=== PATIENT | male | born 1985 | race Caucasian/White ===

== ENCOUNTER 2024-07-17 12:26 | Inpatient (IN) | payer OTHER ==
[2024-07-17 13:59] VITALS: BMI 32.3
[2024-07-17] MEDS ORDERED: POLYETHYLENE GLYCOL (HEALTHYLAX) 3350 17 GM PACKET PO PRN (14:15)
[2024-07-17] MEDS ORDERED: ACETAMINOPHEN 325 MG TABLET (FP) PO PRN (14:15)
[2024-07-17] MEDS ORDERED: NALOXONE (NARCAN) HCL 4 MG/0.1 ML SPRAY NS PRN (14:15)
[2024-07-17] MEDS ORDERED: guaiFENesin 600 MG TABLET.ER (FP) PO PRN (14:15)
[2024-07-17] MEDS ORDERED: MAGNESIUM HYDROX 2400MG/30ML ORAL SUSPENSION 30 ML CUP PO PRN (14:15)
[2024-07-17] MEDS ORDERED: LOPERAMIDE HCL 2 MG CAPSULE PO PRN (14:15)
[2024-07-17] MEDS ORDERED: BENZONATATE 200 MG CAPSULE PO PRN (14:15)
[2024-07-17] MEDS ORDERED: BENZOCAINE/MENTHOL (CHLORASEPTIC ) LOZENGE MM PRN (14:15)
[2024-07-17] MEDS ORDERED: IBUPROFEN 400 MG TABLET (FP) PO PRN (14:15)
[2024-07-17] MEDS ORDERED: IBUPROFEN 600 MG TABLET (FP) PO PRN (14:15)
[2024-07-17] MEDS ORDERED: NICOTINE POLACRILEX 4 MG GUM BUC ONE (16:06)
[2024-07-17] MEDS: NICOTINE POLACRILEX 4 MG GUM BUC PRN (16:07)
[2024-07-17] MEDS ORDERED: TUBERCULIN PPD 5 TU/0.1ML VIAL ID ONE ×2 (17:32→18:29)
[2024-07-17] MEDS: THIAMINE 100 MG TABLET PO SCH (21:21)
[2024-07-17] MEDS: MELATONIN 5 MG TABLETS PO SCH (21:21)
[2024-07-17 23:37] LABS: PH,URINE 5.5 (5.0-8.0); URINE APPEARANCE TURBID; URINE BILIRUBIN NEGATIVE (NEGATIVE); URINE COLOR YELLOW; URINE GLUCOSE (UA) NEGATIVE (NEGATIVE); URINE KETONE TRACE (NEGATIVE); URINE LEUK ESTERASE NEGATIVE (NEGATIVE); URINE NITRITE NEGATIVE (NEGATIVE); URINE PROTEIN NEGATIVE (NEGATIVE)
[2024-07-18 09:53] LABS: CHLORIDE 107 mmol/L (98-107); POTASSIUM 4.5 mmol/L (3.5-5.1); SODIUM 139 mmol/L (136-145)
[2024-07-18 09:57] LABS: HEMATOCRIT 40.4 % (35.4-49); HEMOGLOBIN 12.9 GM/dL (11.7-16.9); MCH 28.4 pg (25.7-33.7); MCHC 31.8 g/dl (32.0-35.9); MEAN CELL VOLUME 89.2 fl (80-96); MEAN PLT VOLUME 9.5 fl (7.5-11.1); PLATELET COUNT 292 10^3/uL (134-434); RBC 4.53 M/mm3 (4.00-5.60); RDW 15.6 % (11.9-15.9); WHITE BLOOD COUNT 10.4 K/mm3 (4.0-10.0)
[2024-07-18] MEDS: CITALOPRAM HYDROBROMIDE 20 MG TABLET PO SCH (10:02)
[2024-07-18] MEDS: NICOTINE 21 MG/24 HOURS TOPICAL PATCH TD SCH (10:03)
[2024-07-18] MEDS: PRENATAL VITAMINS W/ FOLIC ACID TABLET (FP) PO SCH (10:03)
[2024-07-18] MEDS: hydrOXYzine PAMOATE 25 MG CAPSULE (FP) PO PRN (10:04)
[2024-07-18 10:18] LABS: ALBUMIN 3.4 g/dl (3.4-5.0); CALCIUM 8.5 mg/dL (8.5-10.1)
[2024-07-18 10:19] LABS: ANION GAP 6 mmol/L (4-13); BLOOD UREA NITROGEN 11.4 mg/dL (7-18); CO2 26 mmol/L (21-32); GLUCOSE,RANDOM 89 mg/dL (74-106)
[2024-07-18 10:22] LABS: CREATININE 1.1 mg/dL (0.55-1.3); SGOT/AST 18 U/L (15-37)
[2024-07-18 10:23] LABS: SGPT/ALT 31 U/L (13-61)
[2024-07-18 10:25] LABS: BILIRUBIN,TOTAL 0.8 mg/dL (0.2-1); TOT PROT 6.4 g/dl (6.4-8.2)
[2024-07-18 10:26] LABS: ALK PHOS 60 U/L (45-117)
[2024-07-18] MEDS: MAG HYDROX/AL HYDROX/SIMETH 30 ML UNIT-DOSE CUP PO PRN (16:34)
[2024-07-18 18:36] LABS: SYPHILIS W/ RPR CONF NON-REACTIVE (NONREACTIVE)
[2024-07-18 19:05] LABS: HCV DIAGNOSTIC IN-HOUSE W/RFLX NON-REACTIVE (NONREACTIVE)
[2024-07-18] MEDS: SUVOREXANT 10 MG TABLET PO PRN (21:27)
[2024-07-21] MEDS: SUVOREXANT 10 MG TABLET PO PRN (21:37)
[2024-07-23] MEDS: FAMOTIDINE 20 MG TABLET PO SCH (14:38)
[2024-07-23] MEDS: hydrOXYzine PAMOATE 25 MG CAPSULE (FP) PO PRN (18:56)
[2024-07-23] MEDS: SUVOREXANT 15 MG TABLET PO PRN (21:39)
[2024-07-23] MEDS: SIMETHICONE 80 MG TAB.CHEW (FP) PO PRN (21:41)
[2024-07-24] MEDS: NALTREXONE HCL 50 MG TABLET PO SCH (10:23)
[2024-07-24 12:05] LABS: MAGNESIUM 2.3 mg/dL (1.8-2.4)
[2024-07-24 12:23] LABS: INR 1.06 (0.83-1.09); PROTHROMBIN TIME (PATIENT) 11.7 SEC (9.7-13.0)
[2024-07-25] MEDS: LACTULOSE 20 GM/30 ML UDC (FOR ORAL USE ONLY) PO SCH (07:37)
[2024-07-25] MEDS: ATORVASTATIN CA 10 MG TABLET (FP) PO SCH (21:26)
[2024-07-28] MEDS: SUVOREXANT 15 MG TABLET PO PRN (21:10)
[2024-07-30] MEDS: ATORVASTATIN CA 20 MG TABLET (FP) PO SCH (21:59)
[2024-08-02] MEDS: SUVOREXANT 15 MG TABLET PO PRN (21:48)
[2024-08-05] MEDS: SUVOREXANT 15 MG TABLET PO PRN (21:14)
[2024-08-06] MEDS ORDERED: NALTREXONE MICROSPHERES (VIVITROL) 380 MG DISP.SYRIN IM ONE (10:00)
[2024-08-10] MEDS: SUVOREXANT 15 MG TABLET PO PRN (21:30)
[2024-08-11] MEDS: NALTREXONE MICROSPHERES (VIVITROL) 380 MG DISP.SYRIN IM ONE (10:01)
[2024-08-13] MEDS ORDERED: NALTREXONE MICROSPHERES (VIVITROL) 380 MG DISP.SYRIN IM ONE (10:00)
[2024-08-15 06:39] VITALS: BP 122/74; PULSE 56; RESP 16; TEMP 97.5
== END 2024-08-15 09:14 | disposition home or self-care (01) | DRG 772 ==
LOC: YASAS 12:26 → Y3E 15:58
PROVIDERS: ADMIT Psychiatry & Neurology Pain Medicine; ATTEND Psychiatry & Neurology Pain Medicine
PROC: HZ42ZZZ Group Counseling for Substance Abuse Treatment, Cognitive-Behavioral (ICD-10-PCS; principal; 2024-07-17)
DX: F10.20 Alcohol dependence, uncomplicated (principal); F12.20 Cannabis dependence, uncomplicated; F17.210 Nicotine dependence, cigarettes, uncomplicated; F41.9 Anxiety disorder, unspecified; F43.10 Post-traumatic stress disorder, unspecified; F32.A Depression, unspecified; Z59.00 Homelessness unspecified
CPT/HCPCS: 36415; 80053; 80061; 80305; 80307; 81003; 82140; 82652; 83735; 85027; 85610; 86780; 86803; 87811; 93005; 93010; J2315

== ENCOUNTER 2025-01-31 10:51 | Inpatient (IN) | payer OTHER ==
[2025-01-31 11:20] VITALS: BMI 29.3
[2025-01-31] MEDS ORDERED: guaiFENesin 600 MG TABLET.ER (FP) PO PRN (12:38)
[2025-01-31] MEDS ORDERED: MAGNESIUM HYDROX 2400MG/30ML ORAL SUSPENSION 30 ML CUP PO PRN (12:38)
[2025-01-31] MEDS ORDERED: MAG HYDROX/AL HYDROX/SIMETH 30 ML UNIT-DOSE CUP PO PRN (12:38)
[2025-01-31] MEDS ORDERED: BENZOCAINE/MENTHOL (CHLORASEPTIC ) LOZENGE MM PRN (12:38)
[2025-01-31] MEDS ORDERED: IBUPROFEN 400 MG TABLET (FP) PO PRN (12:38)
[2025-01-31] MEDS ORDERED: NALOXONE (NARCAN) HCL 4 MG/0.1 ML SPRAY NS PRN (12:38)
[2025-01-31] MEDS ORDERED: ONDANSETRON *ODT* 4 MG TABLET SL PRN (12:38)
[2025-01-31] MEDS ORDERED: POLYETHYLENE GLYCOL (HEALTHYLAX) 3350 17 GM PACKET PO PRN (12:38)
[2025-01-31] MEDS ORDERED: BENZONATATE 200 MG CAPSULE PO PRN (12:38)
[2025-01-31] MEDS ORDERED: BISMUTH SUBSALICYLATE 524 MG/30 ML PO PRN (12:38)
[2025-01-31] MEDS ORDERED: LOPERAMIDE HCL 2 MG CAPSULE PO PRN (12:38)
[2025-01-31] MEDS ORDERED: DICYCLOMINE HCL 10 MG CAPSULE PO PRN (12:38)
[2025-01-31] MEDS ORDERED: PRENATAL VITAMINS W/ FOLIC ACID TABLET (FP) PO ONE (13:06)
[2025-01-31] MEDS ORDERED: NICOTINE 14 MG/24 HOURS TOPICAL PATCH TD ONE (13:06)
[2025-01-31] MEDS: PRENATAL VITAMINS W/ FOLIC ACID TABLET (FP) PO SCH (13:42)
[2025-01-31] MEDS: NICOTINE 14 MG/24 HOURS TOPICAL PATCH TD SCH (13:42)
[2025-01-31] MEDS: hydrOXYzine PAMOATE 25 MG CAPSULE (FP) PO PRN (18:26)
[2025-01-31] MEDS: ATORVASTATIN CA 20 MG TABLET (FP) PO SCH (22:27)
[2025-01-31] MEDS: THIAMINE 100 MG TABLET PO SCH (22:27)
[2025-01-31] MEDS: MELATONIN 5 MG TABLETS PO SCH (22:27)
[2025-01-31] MEDS: FAMOTIDINE 20 MG TABLET PO SCH (22:27)
[2025-01-31] MEDS: METHOCARBAMOL 500 MG TABLET PO PRN (22:27)
[2025-02-01 10:33] LABS: MCHC 32.5 g/dl (32.3-36.5); MEAN CELL VOLUME 88.1 fl (79.0-92.2); MEAN PLT VOLUME 11.6 fl (9.4-12.4); RDW 14.6 % (12.0-15.6)
[2025-02-01 11:04] LABS: GLUCOSE,RANDOM 81.0 mg/dL (74-106)
[2025-02-01 11:05] LABS: TOT PROT 5.8 g/dl (6.4-8.2)
[2025-02-01 11:06] LABS: CO2 23.0 mmol/L (21-32)
[2025-02-01 11:07] LABS: ALK PHOS 66.0 U/L (40-150)
[2025-02-01 11:10] LABS: CREATININE 1.06 mg/dL (0.55-1.3); SGOT/AST 38.0 U/L (5-34); SGPT/ALT 25.0 U/L (0-55)
[2025-02-01] MEDS: NICOTINE POLACRILEX 2 MG GUM BUC PRN (17:18)
[2025-02-01] MEDS: hydrOXYzine PAMOATE 25 MG CAPSULE (FP) PO SCH (22:16)
[2025-02-01] MEDS: MELATONIN 5 MG TABLETS PO SCH (22:17)
[2025-02-02] MEDS: IBUPROFEN 600 MG TABLET (FP) PO PRN (17:15)
[2025-02-03] MEDS: ACETAMINOPHEN 325 MG TABLET (FP) PO PRN (18:37)
[2025-02-03] MEDS: SULFAMETHOXAZOLE/TRIMETHOPRIM 800MG/160MG D.S. TABLET PO SCH (18:37)
[2025-02-05 10:07] VITALS: BP 141/85; PULSE 86; RESP 15; TEMP 97.3
== END 2025-02-05 09:19 | disposition home or self-care (01) | DRG 775 ==
LOC: YASAS 10:51 → Y3N 13:11
PROVIDERS: ADMIT Allergy & Immunology; ATTEND Student in an Organized Health Care Education/Training Program
PROC: HZ2ZZZZ Detoxification Services for Substance Abuse Treatment (ICD-10-PCS; principal; 2025-01-31)
DX: F10.230 Alcohol dependence with withdrawal, uncomplicated (principal); F12.20 Cannabis dependence, uncomplicated; F17.210 Nicotine dependence, cigarettes, uncomplicated; F32.A Depression, unspecified; F41.9 Anxiety disorder, unspecified; E78.5 Hyperlipidemia, unspecified; L03.114 Cellulitis of left upper limb
CPT/HCPCS: 36415; 80053; 80305; 80307; 85027; 86780; 93005; 93010